=== PATIENT | female | born 1995 | race African-American/Black ===

== ENCOUNTER 2017-03-12 06:10 | Emergency (ER) | payer SELFPAY ==
[2017-03-12] MEDS ORDERED: Ketorolac Tromethamine 60 MG/2 ML VIAL ONE (06:24)
== END 2017-03-12 06:29 | disposition home or self-care (01) ==
LOC: ERS 06:10
DX: M54.5 Low back pain (principal)
CPT/HCPCS: 99283; J1885

== ENCOUNTER 2018-04-25 08:35 | Emergency (ER) | payer SELFPAY ==
[2018-04-25] MEDS ORDERED: Ketorolac Tromethamine 30 MG/ML VIAL ONE (09:14)
[2018-04-25 09:37] LABS: #Basophils 0.1 thou/uL (0.0-0.2); #Eosinphils 0.1 thou/uL (0.0-0.7); #Monocytes 0.8 thou/uL (0.11-0.59); #Neutrophils 5.9 thou/uL (1.40-6.50); %Basophils 0.5 % (0.0-1.0); %Eosinophils 1.1 % (0.0-10.0); %Lymphocytes 37.2 % (28.0-48.0); %Monocytes 7.1 % (0.0-4.0); %Neutrophils 54.2 % (31.0-61.0); Hemoglobin 11.4 g/dL (12.0-16.0); Mean Corpuscular HGB CONC 31.7 g/dL (32.0-36.0); Mean Corpuscular Hemoglobin 24.3 pg (25.0-35.0); Mean Corpuscular Volume 76.6 fL (78.0-98.0); Mean Platelet Volume 9.6 fL (7.4-10.4); Platelet Count 318 thou/uL (130-400); RBC Distribution Width 14.7 % (11.5-14.5); White Blood Cell (WBC) Count 10.9 thou/uL (4.8-10.8)
[2018-04-25 09:59] LABS: ALT (SGPT) 15 U/L (8-55); AST (SGOT) 17 U/L (5-34); Albumin 3.9 g/dL (3.5-5.0); Alkaline Phosphatase 92 U/L (40-150); Anion Gap 17 mmol/L (10-20); BUN (Urea Nitrogen) 11 mg/dL (7.0-18.7); Bilirubin, Total 0.3 mg/dL (0.2-1.2); CK (CPK) 106 U/L (29-168); Calc. Creatinine Clearance 0 mL/min (70-130); Calcium 9.7 mg/dL (7.8-10.44); Carbon Dioxide 20 mmol/L (22-29); Chloride 103 mmol/L (98-107); Estimated GFR-MDRD Greater than 90; Globulin 5.3 g/dL (2.4-3.5); Glucose 98 mg/dL (70-105); Lipase 9 U/L (8-78); Potassium 4.2 mmol/L (3.5-5.1); Protein, Total 9.2 g/dL (6.0-8.3); Sodium 136 mmol/L (136-145)
[2018-04-25 10:03] LABS: CKMB 0.8 ng/mL (0-6.6); Troponin I Less than 0.010 ng/mL (< 0.028)
[2018-04-25 10:13] LABS: Bilirubin Negative (Negative); Blood, Urine Small (Negative); Clarity TURBID (Clear); Glucose, Urine (Dipstick) Negative (Negative); Leukocyte Large (Negative); Nitrite Negative (Negative); Protein, Urine (Dipstick) Trace mg/dL (Neg-Trace); Specific Gravity, Urine 1.027 (1.002-1.036)
[2018-04-25 10:15] LABS: Pregnancy Test - Urine (BHCG) Negative (Negative); Pregu Control Background? CLEAR/WHITE (CLR/WHITE); Pregu Control Bar Appear? YES (CONTROL BAR); Specific Gravity 1.027 (1.002-1.036)
[2018-04-25 10:16] LABS: Bacteria/HPF 1+ HPF (None Seen); Hyaline Casts/LPF 0-3 HYALINE CAST LPF (0-3 Hyaline); Pathc Cast-AUWi Flag 0.43 (0-2.49)
--- NOTE | 2018-04-25 10:18 | RAD ---
UPRIGHT PORTABLE CHEST ONE VIEW: History: 22-year-old female with history of cough, bilateral leg swelling. Joint pain. FINDINGS: Heart size is normal. The lungs are clear. No pneumonia, edema, or pleural effusion or other acute pr ocess. IMPRESSION: No acute intrathoracic disease. POS: [facility]
[2018-04-25 10:22] LABS: Amphetamine Not Detected (NotDetected); Barbiturates Screen Not Detected (NotDetected); Benzodiazepine Screen Not Detected (NotDetected); Cocaine Metabolite Screen Not Detected (NotDetected); Medtox Control Line Valid? VALID (VALID); Medtox Reader # READER 1; Methadone Not Detected (NotDetected); Methamphetamine Not Detected (NotDetected); Opiate Screen Not Detected (NotDetected); Oxycodone Screen Not Detected (NotDetected); Phencyclidine (PCP) Not Detected (NotDetected); THC/Cannabinoid Screen Not Detected (NotDetected); Tricyclic Screen Not Detected (NotDetected)
[2018-04-25] MEDS ORDERED: predniSONE 20 MG TAB ONE (11:07)
== END 2018-04-25 14:28 | disposition home or self-care (01) ==
LOC: ERS 08:35
DX: M13.0 Polyarthritis, unspecified (principal); N39.0 Urinary tract infection, site not specified
CPT/HCPCS: 71045; 80053; 80306; 81003; 81015; 81025; 82550; 82553; 83690; 83880; 84443; 84484; 85025; 85652; 86140; 93005; 94760; 96361; 96374; J1885; J7506

== ENCOUNTER 2018-10-13 19:36 | Emergency (ER) | payer BC, SELFPAY ==
[~2018-10-13 19:36] MED LIST: Iopamidol 370 76% 100 ML VIAL ONE
[2018-10-13] MEDS ORDERED: Metoclopramide HCl 10 MG/2 ML VIAL ONE (20:08)
[2018-10-13] MEDS ORDERED: Ketorolac Tromethamine 30 MG/ML VIAL ONE (20:08)
[2018-10-13 20:12] LABS: #Basophils 0.1 thou/uL (0.0-0.2); #Eosinphils 0.1 thou/uL (0.0-0.7); #Lymphocytes 3.2 thou/uL (1.20-3.40); #Monocytes 0.8 thou/uL (0.11-0.59); #Neutrophils 6.6 thou/uL (1.40-6.50); %Basophils 0.6 % (0.0-1.0); %Lymphocytes 29.7 % (21.0-51.0); %Monocytes 7.2 % (0.0-10.0); %Neutrophils 61.6 % (42.0-75.0); Hemoglobin 10.5 g/dL (12.0-16.0); Mean Corpuscular Hemoglobin 24.1 pg (27.0-31.0); Mean Corpuscular Volume 75.4 fL (78.0-98.0); Mean Platelet Volume 9.6 fL (7.4-10.4); Platelet Count 257 thou/uL (130-400); RBC Distribution Width 15.6 % (11.5-14.5); Red Blood Cell (RBC) Count 4.37 mill/uL (4.20-5.40); White Blood Cell (WBC) Count 10.7 thou/uL (4.8-10.8)
[2018-10-13 20:24] LABS: BHCG - Serum Negative (NEGATIVE); Pregs Control Background? CLEAR/WHITE (CLR/WHITE); Pregs Control Bar Appear? YES (CONTROL BAR)
--- NOTE | 2018-10-13 20:25 | RAD ---
Exam: Chest one view HISTORY:Hypertension. Comparison: 04/25/2018 FINDINGS: Cardiac silhouette: Normal Pulmonary vessels: Normal Costophrenic angles: Clear LUNGS: No masses or consolidation. Pneumothorax: None Osseous abnormalities: None IMPRESSION: No acute cardiopulmonary process.
[2018-10-13 20:27] LABS: Amphetamine Not Detected (NotDetected); Barbiturates Screen Not Detected (NotDetected); Benzodiazepine Screen Not Detected (NotDetected); Cocaine Metabolite Screen Not Detected (NotDetected); Medtox Control Line Valid? VALID (VALID); Medtox Reader # READER 1; Methadone Not Detected (NotDetected); Methamphetamine Not Detected (NotDetected); Opiate Screen Not Detected (NotDetected); Oxycodone Screen Not Detected (NotDetected); Phencyclidine (PCP) Not Detected (NotDetected); THC/Cannabinoid Screen Not Detected (NotDetected); Tricyclic Screen Not Detected (NotDetected)
[2018-10-13 20:32] LABS: ALT (SGPT) 20 U/L (8-55); AST (SGOT) 16 U/L (5-34); Albumin 3.8 g/dL (3.5-5.0); Alkaline Phosphatase 89 U/L (40-150); Anion Gap 13 mmol/L (10-20); BUN (Urea Nitrogen) 10 mg/dL (7.0-18.7); Bilirubin, Total 0.3 mg/dL (0.2-1.2); Calc. Creatinine Clearance 0 mL/min (70-130); Calcium 9.3 mg/dL (7.8-10.44); Carbon Dioxide 25 mmol/L (22-29); Chloride 105 mmol/L (98-107); Estimated GFR-MDRD Greater than 90; Globulin 4.5 g/dL (2.4-3.5); Glucose 95 mg/dL (70-105); Potassium 3.7 mmol/L (3.5-5.1); Protein, Total 8.3 g/dL (6.0-8.3); Sodium 139 mmol/L (136-145)
[2018-10-13 20:33] LABS: Acetaminophen Less than 6.0 mcg/mL (10.0-30.0); Alcohol Less than 10 mg/dL (Less than 10); Salicylate Less than 8.0 mg/dL (15.0-30.0)
--- NOTE | 2018-10-13 21:10 | CT ---
Exam: Head CT without contrast HISTORY: Hypertension. Frontal headache. COMPARISON: none FINDINGS: Hemorrhage: No intraparenchymal hemorrhage or extra-axial hematoma. Brain parenchyma: Cortical aquino-white matter differentiation is preserved. No mass effect or midline shift. Basilar cisterns are patent. There is a subtle hyperdense focus in the suprasellar cistern measuring 1.1 x 1.3 cm. Ventricular system: Ventricles and sulci are patent and symmetric. Calvarium: Intact. Right frontal scalp lipoma measuring 1.5 x 2.3 cm. Sinuses and mastoid air cells: Adequate aeration. IMPRESSION: 1. No acute intracranial process 2. Hyperdense suprasellar mass as described above. Differential considerations include a pituitary ba sed lesion such as a macroadenoma. Other etiologies including a aneurysm cannot be completely excluded. Further evaluation with brain MRI utilizing pituitary protocol versus CT angiogram of the h ead is recommended. Results of study discussed with Dr. Lyles 10/13/2018 at 9:06 PM Code CR
--- NOTE | 2018-10-13 22:31 | CT ---
Exam: Postcontrast head CT HISTORY: Possible sellar mass COMPARISON: 10/13/2018 FINDINGS: No pathologic enhancement the brain parenchyma There is hyperdense mass in the sella and suprasellar region, felt to represent a pituitary based mas s such as a macroadenoma. 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 Refer to separ ate CT angiogram report for further detail with regards to the mass and its dimensions.
--- NOTE | 2018-10-13 22:36 | CT ---
Exam: CT angiogram of the head History abnormal mass in the sella region Comparison none TECHNIQUE: CT angiogram of the head performed in the axial plane. Three-dimensional reformatted image s are submitted FINDINGS: Limited evaluation due to poor timing of contrast bolus. There does not appear to be any significant dilatation of the distal cervical internal carotid arteries Anterior circulation: Symmetric enhancement and luminal diameter the A1 and M1 segments. Proximal A2 segments and proximal MCA branches are symmetric. The degree of hyperdensity is less than the adjacent enhancing vessels. The hyperdense mass noted in the suprasellar region atrophy has continuit y with the sella. A pituitary macroadenoma is favored, measuring 1.8 cm cranial caudal by 1.5 cm mediolateral by 1.5 cm anterior-posterior. There is no evidence of a definite aneurysm the anterior c irculation within the limitations of this current study. Posterior circulation: Limited evaluation of both intracranial vertebral arteries as well as PICA art shazia origins. Both vertebral arteries supply a normal appearing basilar artery. Proximal P1 segments are unremarkable IMPRESSION: 1. Limited evaluation due to technique. There is diminished enhancement of contrast bolus. Additional ly, limited evaluation due to body habitus. No evidence of aneurysm level [place]. 2. Findings suggesting a sellar/suprasellar mass. Pituitary macroadenoma is favored.
== END 2018-10-13 23:02 | disposition home or self-care (01) ==
LOC: ERS 19:36
DX: I10 Essential (primary) hypertension (principal)
CPT/HCPCS: 70450; 70460; 70496; 71045; 80053; 80306; 80307; 83880; 84703; 85025; 93005; 94760; 96365; 96366; 96375; J1885; J2765; Q9967

== ENCOUNTER 2019-01-19 14:26 | Inpatient (IN) | payer BC ==
[2019-01-19 15:21] LABS: #Eosinphils 0.1 thou/uL (0.0-0.7); #Lymphocytes 3.5 thou/uL (1.20-3.40); #Monocytes 0.7 thou/uL (0.11-0.59); #Neutrophils 6.3 thou/uL (1.40-6.50); %Basophils 0.3 % (0.0-1.0); %Eosinophils 1.1 % (0.0-10.0); %Lymphocytes 32.8 % (21.0-51.0); %Monocytes 6.6 % (0.0-10.0); %Neutrophils 59.2 % (42.0-75.0); Hemoglobin 11.5 g/dL (12.0-16.0); Mean Corpuscular HGB CONC 31.1 g/dL (32.0-36.0); Mean Corpuscular Volume 77.1 fL (78.0-98.0); Platelet Count 335 thou/uL (130-400); RBC Distribution Width 15.8 % (11.5-14.5); Red Blood Cell (RBC) Count 4.79 mill/uL (4.20-5.40); White Blood Cell (WBC) Count 10.7 thou/uL (4.8-10.8)
[2019-01-19 15:24] LABS: BHCG - Serum Negative (NEGATIVE); Pregs Control Background? CLEAR/WHITE (CLR/WHITE); Pregs Control Bar Appear? YES (CONTROL BAR)
[2019-01-19] MEDS ORDERED: Proparacaine 0.5% Opth 15 ML BOT ONE (15:27)
[2019-01-19 15:41] LABS: ALT (SGPT) 23 U/L (8-55); AST (SGOT) 16 U/L (5-34); Albumin 4.1 g/dL (3.5-5.0); Alkaline Phosphatase 97 U/L (40-150); Anion Gap 14 mmol/L (10-20); BUN (Urea Nitrogen) 11 mg/dL (7.0-18.7); Bilirubin, Total 0.3 mg/dL (0.2-1.2); CK (CPK) 97 U/L (29-168); Calc. Creatinine Clearance 0 mL/min (70-130); Carbon Dioxide 25 mmol/L (22-29); Chloride 102 mmol/L (98-107); Estimated GFR-MDRD Greater than 90; Globulin 4.7 g/dL (2.4-3.5); Glucose 118 mg/dL (70-105); Potassium 3.5 mmol/L (3.5-5.1); Protein, Total 8.8 g/dL (6.0-8.3); Sodium 137 mmol/L (136-145)
--- NOTE | 2019-01-19 15:47 | RAD ---
PORTABLE CHEST ONE VIEW: 01/19/2019 3:25 p.m. HISTORY: Dizziness. Vision changes. COMPARISON: 10/13/2018 FINDINGS: The heart size is borderline. The lungs are expanded without focal areas of consolidation, pneumotho races, donald pulmonary edema, or pleural effusions. IMPRESSION: No acute process. POS: [facility]
[2019-01-19 15:50] LABS: Thyroid Stimulating Hormone 2.4153 uIU/mL (0.35-4.94)
[2019-01-19 16:42] LABS: Bilirubin Negative (Negative); Blood, Urine 1+ (Negative); Clarity Turbid (Clear); Glucose, Urine (Dipstick) Normal (Negative); Leukocyte Negative Leu/uL (Negative); Nitrite Negative (Negative); Protein, Urine (Dipstick) Negative (Neg-Trace); Urobilinogen Normal mg/dL (Less than 2); WBC/HPF 0-3 HPF (0-3)
[2019-01-19 16:47] LABS: Bacteria/HPF 1+ HPF (None Seen)
--- NOTE | 2019-01-19 17:59 | CT ---
CT BRAIN WITHOUT CONTRAST: Date: 01/19/19 HISTORY: Dizziness. Left eye vision changes. FINDINGS: Comparison made with exam of 10/13/18. No evidence of acute infarct, hemorrhage, midline shift, or abnormal extra-axial fluid collections ar e seen. The ventricular size is normal and the basilar cisterns are patent. Sellar and suprasellar ma ss is likely due to macroadenoma and was also seen on the previous study. The bony calvarium is intac t. The visualized paranasal sinuses and mastoid air cells are well aerated. IMPRESSION: Stable exam. No CT evidence of acute intracranial process. POS: [facility]
[2019-01-19] MEDS ORDERED: Labetalol HCl 100 MG/20 ML VIAL ONE (18:51)
[2019-01-19] MEDS ORDERED: Acetaminophen 500 MG TAB ONE (19:53)
[2019-01-19] MEDS ORDERED: Ondansetron ODT 4 MG TAB SL PRN (21:10)
[2019-01-19] MEDS ORDERED: Ondansetron PF 4 MG/2 ML Vial IVP PRN (21:10)
[2019-01-19] MEDS ORDERED: Sodium Chloride 0.9% 1,000 ML IV SCH (21:15)
[2019-01-19 21:57] VITALS: BMI 62.4
[2019-01-20] MEDS ORDERED: cloNIDine 0.1 MG TAB PO PRN (02:02)
--- NOTE | 2019-01-20 03:17 | HP ---
PRIMARY CARE DOCTOR: The patient goes to [facility]. CODE STATUS: Full code. TIME OF EVALUATION: 11:00 pm. CHIEF COMPLAINT: Evaluation of dizziness and left eye vision changes for the past 3 weeks. HISTORY OF PRESENT ILLNESS: A 23-year-old female patient, morbidly obese with history of hypertension. She reported she had not been on medication because medication had been stopped. The patient came to the hospital after having mild to moderate left eye vision change since past 3 weeks that has been gradually worsening with no clear triggers, no alleviating factors. The patient has no other significant neurological findings or weakness. No clear triggers. No alleviating factors. REVIEW OF SYSTEMS: All systems reviewed were negative except for the findings mentioned above. The patient is morbidly obese. PAST MEDICAL HISTORY: History of hypertension, morbidly obese. PAST SURGICAL HISTORY: No surgical history. PSYCH HISTORY: No previous history. SOCIAL HISTORY: No alcohol. No drugs. No smoking history. Lives at home alone. FAMILY HISTORY: Reviewed, noncontributory for current presentation. PHYSICAL EXAMINATION: VITAL SIGNS: On presentation, blood pressure 181/106, heart rate 134, respiratory rate was 18, temperature 98.5, oxygen saturation 98% on room air. GENERAL: The patient is alert, oriented, in no acute distress. HEENT: Eyes, normal conjunctivae. Moist oral mucosa. Anicteric. No JVD. RESPIRATORY: Bilateral air entry. No rales. No wheezes. Symmetric expansion. CARDIAC: Normal rate, regular rhythm. No murmurs. No gallop. No edema. ABDOMEN: Soft. Normal bowel sounds. MUSCULOSKELETAL: Baseline range of motion and strength. SKIN: Warm, intact. No pallor. No rash. No redness. Capillary refill seems to intact. NEUROLOGICAL: No evidence of any new focal weakness. Cranial nerves seem to be intact. PSYCH: The patient is in good mood. No anxiety. Optimal judgment. LABORATORY DATA: EKG was reviewed. The patient has sinus tachycardia at the rate of 132. Head CT was done. CT showed suprasellar mass, likely pituitary macroadenoma, unchanged from previous exam. CBC was reviewed, white count 10.7, hemoglobin 11.5, MCV 77.1, platelet count 335. Coagulation, D-dimer 0.42. Chemistry; sodium 137, potassium 3.5, chloride 102, carbon dioxide 25, anion gap 14, BUN 11, creatinine 0.76, GFR greater than 90, glucose 118, calcium 10.0, total bilirubin 0.3. LFTs were negative. Albumin 4.1, globulin 4.7, albumin to globulin ratio 0.9. TSH 2.4. test was negative. Urine was done and it was negative. ASSESSMENT AND PLAN: The patient will be placed in the hospital with following medical problems: 1. Suprasellar mass as seen on CT scan from October in addition from today. The patient has had change in vision in the left eye for the past 3 weeks. This could be related to the mass and we will do an MRI to further visualize it. We will do chemical workup for this entity and we will manage depending on results, Neurosurgery will need to be involved given this presentation. 2. Morbidly obese. The patient was advised to lose weight. 3. Uncontrolled hypertension. The patient presented with systolic blood pressure in the 180s. She has reported in the past that her primary care doctor has stopped her medications because she was having no problem with blood pressure. We will start her on clonidine p.r.n. and we will adjust treatment as needed. 4. Deep venous thrombosis prophylaxis. Job ID: [id number]
[2019-01-20 03:43] LABS: Thyroid Stimulating Hormone 1.6239 uIU/mL (0.35-4.94)
[2019-01-20 05:44] LABS: Free T4 (Free Thyroxine) 0.99 ng/dL (0.70-1.48)
[2019-01-20 13:25] LABS: Color Of CSF Supernatant COLORLESS (Colorless); Tube # 1; Unspun CSF Color COLORLESS (Colorless)
[2019-01-20 13:42] LABS: CSF, Glucose 66 mg/dl (40-70); CSF, Protein 45 mg/dL (15-40)
--- NOTE | 2019-01-20 13:53 | RAD ---
Exam: LUMBAR PUNCTURE WITH FLUOROSCOPIC GUIDANCE: HISTORY: Headache. Evaluate for opening pressure. COMPARISON: None. Exposure: 1.9 minutes. 2415.9 microgray/M2. FINDINGS: Initial two-view collective bargaining specialist radiograph of lumbar spine demonstrates 5 lumbar type vertebral bodies. Verte bral body height is maintained. No fracture The L3-L4 level was deemed appropriate. Skin was prepped and draped in a sterile fashion. 1% lidocain e, buffered with sodium bicarbonate was used for local anesthesia. Under fluoroscopic guidance, a 22-gauge spinal needle was advanced into the CSF space. Opening pressure was 24.5 cm of water. Appro ximately 3 mL of clear CSF was collected IMPRESSION: Successful lumbar puncture. Opening pressure was 24.5 cm of water. Transcribed Date/Time: 01/20/2019 2:37 PM
[2019-01-20 14:24] LABS: CSF Source CSF; Tube # 2
[2019-01-20 14:25] LABS: Clarity Clear (Clear); RBC Count - Manual 320 /cumm (None Seen); WBC/NonHematics Count - Manual 5 /cumm (0-5)
--- NOTE | 2019-01-21 00:41 | CON ---
DATE OF CONSULTATION: 01/20/2019 CONSULTING PHYSICIAN: Hospitalist Services. IMPRESSION: Pituitary adenoma, likely prolactin producing based on her symptoms. PLAN: 1. Neurosurgical consultation. 2. Stat prolactin level. 3. Consider dopamine agonists for shrinkage of the tumor, if she is positive. HISTORY OF PRESENT ILLNESS: Ms. Bobby is a 23-year-old black female with history of morbid obesity. She reports to having some headaches and noticing some blurred vision in her left eye. She came into the emergency room for evaluation. Her CT revealed a suprasellar mass. An attempt was made to get an MRI of the brain, but she would not fit in the machine. She also reported that she has developed quite a bit of facial hair growth over the last few months. She does not report any orbital pain. There is no nausea or vomiting. She has no other focal neurologic complaints. PAST MEDICAL HISTORY: Otherwise negative other than an obesity. ALLERGIES: NONE REPORTED. SOCIAL HISTORY: Unremarkable. FAMILY HISTORY: Unremarkable. REVIEW OF SYSTEMS: Ten system review of system is otherwise negative. PHYSICAL EXAMINATION: GENERAL: She is a morbidly obese young woman, sitting at the bedside. No distress. VITAL SIGNS: Stable. She is afebrile. HEENT: Pupils are equal and reactive. Conjunctivae clear. There is no proptosis present. No ptosis is present. NECK: Supple. EXTREMITIES: No cyanosis or edema. NEUROLOGIC: She is alert and cooperative. Her speech is fluent and clear. Cranial nerves were intact other than a slightly reduced left peripheral field cut. Funduscopic exam showed sharp disk margins bilaterally. She had no focal deficits otherwise. SUMMARY: A 23-year-old with a suprasellar mass and a partial visual field deficit on the left and some discomfort as well as possibly galactorrhea. We will get a stat prolactin level and we are awaiting neurosurgery's input. Job ID: [id number]
--- NOTE | 2019-01-21 10:00 | CON ---
DATE OF CONSULTATION: Ms. Bobby is a very pleasant 23-year-old woman who actually we were trying to get in for clinical evaluation of an identified suprasellar mass back in October, who unfortunately was unable to do the MRI scan secondary to funding back in the early part of November. She presents now with roughly a week or two of visual blurriness that is not noticeable to her and she has had recent onset of hirsutism. She is morbidly obese. Unfortunately, she still do not have an MRI. 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 I discussed with her that the very likely route is surgical resection, but first we will need to start her on medications to depress the prolactin secretion and likely help reduce some of this tumor size. I will defer to either Endocrinology or Neurology for proper dosing and prescription of said medications. We will certainly need an MRI with and without contrast to better plan for surgery. I discussed with her likely multi-approach procedure for resection sometime in the next 6 months, and she will need close clinical followup after discharge from our standpoint. She is safe for discharge from the hospital at any point, and we will arrange for outpatient followup. Job ID: [id number]
[2019-01-21] MEDS ORDERED: Pramipexole Di-HCl 0.25 MG TAB PO SCH (10:15)
--- NOTE | 2019-01-21 12:32 | PDOC.HOSPP ---
- Subjective Subjective: Seen and examined. Patient feeling well. Denies pain. Breathing well. Blurry vision not worse and she does not notice it most of the time. Found to have very elevated Prolactin. - Objective Vital Signs & Weight: Vital Signs (12 hours) Temp Pulse Resp BP Pulse Ox 01/21/19 11:00 98.2 F 111 H 16 129/74 98 01/21/19 07:00 97.9 F 90 18 135/87 97 01/21/19 03:00 98.2 F 92 18 143/84 H 98 Weight Weight 386 lb 8.64 oz I&O: 01/20/19 01/21/19 01/22/19 06:59 06:59 06:59 Intake Total 2400 480 Output Total 500 Balance 2400 -20 Result Diagrams: 01/19/19 15:04 01/19/19 15:04 - Exam NAD, awake alert Eye: PERRL, anicteric sclera Eye - other findings: Blurry vision, though able to function ENT: moist mucosa Neck: supple, symmetric, no JVD Neck - other findings: Hirsutism present Heart: RRR, no murmur, no gallops, no rubs Respiratory: CTAB, no wheezes, no rales, no ronchi Gastrointestinal: soft, non-tender, non-distended, no guarding, no rigidity Extremities: no edema Neurological: CN's grossly intact, normal sensation to touch, no weakness, no focal deficits, vision deficit (Very mild blurring vision) Musculoskeletal: normal strength Psychiatric: normal affect, A&O x 3 Hosp A/P (1) Prolactinoma Code(s): D35.2 - BENIGN NEOPLASM OF PITUITARY GLAND Status: Acute (2) Blurry vision Code(s): H53.8 - OTHER VISUAL DISTURBANCES Status: Acute (3) Obesity Code(s): E66.9 - OBESITY, UNSPECIFIED Status: Chronic (4) HTN (hypertension) Code(s): I10 - ESSENTIAL (PRIMARY) HYPERTENSION Status: Acute (5) Hirsutism Code(s): L68.0 - HIRSUTISM Status: Acute - Plan Plan: Neurology and Neurosurgery consultation, recommendations appreciated MRI brain with and with out contrast - will need bariatric capable Case management consult for bariatric capable MRI vs Open MRI Start Bromocriptine 1.25mg QPM with dinner, will need a slow titration up over the next 2 weeks to 2.5mg BID Will need serial Prolactin levels in the outpatient setting until Prolactin normalizes FSH and LH are suppressed, other hormones pending Will need improved follow up with Endocrinology, Neurology, and Neurosurgery in the outpatient setting BP elevated, though seems to be situational. A blood pressure log should be kept over the next few weeks and if persistently high may start hypertensive medications DVT PPX
[2019-01-21] MEDS: Acetaminophen 325 MG TAB PO PRN (16:40)
[2019-01-21] MEDS: Bromocriptine 2.5 MG TAB PO SCH (16:41)
[2019-01-21] MEDS: Pramipexole Di-HCl 0.25 MG TAB PO SCH (21:01)
[2019-01-22] MEDS ORDERED: Bromocriptine 2.5 MG TAB PO SCH (08:00)
[2019-01-22] MEDS: Pramipexole Di-HCl 0.25 MG TAB PO SCH (08:33)
[2019-01-22] MEDS ORDERED: Lisinopril 5 MG TAB PO SCH (09:00)
[2019-01-22] MEDS: Acetaminophen 325 MG TAB PO PRN (15:38)
[2019-01-22 15:46] VITALS: BP 137/94; TEMP 98.2
[2019-01-22] MEDS: Bromocriptine 2.5 MG TAB PO SCH (17:58)
--- NOTE | 2019-01-23 01:17 | DIS ---
DATE OF ADMISSION: 01/19/2019 DATE OF DISCHARGE: 01/22/2019 REASON FOR HOSPITALIZATION: Blurry vision, history of brain tumor. SIGNIFICANT FINDINGS: The patient was found to have severely elevated prolactin level concerning for prolactinoma. PROCEDURES PERFORMED AND TREATMENTS RENDERED: The patient was sent out to [facility] for open MRI, official report is pending. The patient is started on bromocriptine to reduce prolactin level acutely in the hospital, will need up titration over the next coming weeks. CONDITION ON DISCHARGE: Stable. SPECIFIC INSTRUCTIONS FOR THE PATIENT/FAMILY: 1. Take all medications as directed. 2. Follow up with primary care physician in the next 5 to 7 days. 3. Follow up with Neurosurgery in the next 1 to 2 weeks. 4. Follow up with Neurology in the next 1 to 2 weeks. 5. Follow up with Endocrinology in the next 1 to 2 weeks. HISTORY OF PRESENT ILLNESS: Ms. Bobby is a very pleasant 23-year-old female who was diagnosed with brain tumor in the spring of this year. The patient was sent home and recommended followup in the outpatient setting. Unfortunately, the patient did not follow up and she did not have any further testing or treatment. The patient was concerned because she was told she would have to pay 7000 dollars for an MRI of the brain, so she did not follow up with any doctors or take any medicines. The patient is presenting to [facility] on 01/19/2019, with worsening blurry vision and double vision. The patient had CT scan of the brain, please see full report for details, no acute intracranial abnormality was identified. The patient does have sellar and suprasellar mass that is likely due to macroadenoma as was previously demonstrated on prior CT scan of the brain. The patient was seen by Neurology and Neurosurgery, please see full consultation and progress notes for details. Neurology and Neurosurgery recommending starting dopamine agonist medications to shrink likely prolactinoma. The patient had blood levels tested with prolactin level being 1280. The patient was started on bromocriptine in the hospital and she did tolerate this medication without acute vomiting. The patient did have some nausea associated; however, she was able to keep the medication down. The patient is recommended safe for discharge by all specialists with close followup in the outpatient setting. The patient is recommended to have slow titration up of bromocriptine. The patient is to have slow titration up of bromocriptine over the upcoming weeks as coordinated by her primary care physician and sonar subsystem equipment operator. The patient was strictly recommended that if signs or symptoms return, worsen, or any other new symptoms occur, she is to return to acute care hospital immediately for re-evaluation. Neurosurgery recommending that the patient be started on prolactin-suppressing medication, she may require surgical correction in the next 6 months pending clinical improvement. Greater than 40 minutes spent coordinating care and discharge process on this patient. Job ID: [id number]
== END 2019-01-22 18:24 | disposition home or self-care (01) | DRG 644 ==
LOC: ERS 14:26 → 2SE 18:44
PROVIDERS: ADMIT Internal Medicine; ATTEND Internal Medicine
PROC: 009U3ZX Drainage of Spinal Canal, Percutaneous Approach, Diagnostic (ICD-10-PCS; principal; 2019-01-20)
PROC: B01B1ZZ Fluoroscopy of Spinal Cord using Low Osmolar Contrast (ICD-10-PCS; 2019-01-20)
DX: D35.2 Benign neoplasm of pituitary gland (principal); Z68.44 Body mass index [BMI] 60.0-69.9, adult; E66.01 Morbid (severe) obesity due to excess calories; I10 Essential (primary) hypertension; H53.8 Other visual disturbances; L68.0 Hirsutism
CPT/HCPCS: 36415; 62270; 70450; 71045; 80053; 81003; 81015; 82024; 82530; 82550; 82945; 83001; 83002; 83003; 83520; 83880; 84146; 84157; 84439; 84443; 84481; 84484; 84703; 85025; 85379; 89051; 93005; 96361; 96374; Q0162

== ENCOUNTER 2019-03-29 06:25 | Emergency (ER) | payer BC, SELFPAY ==
[2019-03-29] MEDS ORDERED: Sulfameth/Trimethoprim DS 800-160mg TAB ONE (07:21)
[2019-03-29] MEDS ORDERED: HYDROcodone/Acetaminophen 10/325 mg Tablet ONE (07:21)
[2019-03-29] MEDS ORDERED: Lidocaine 1% w/Epinephrine 1:100K 20 ML VIAL ONE (07:22)
[2019-03-29] MEDS ORDERED: Ketorolac Tromethamine 30 MG/ML VIAL ONE (07:37)
== END 2019-03-29 08:07 | disposition home or self-care (01) ==
LOC: ERS 06:25
DX: L02.212 Cutaneous abscess of back [any part, except buttock and flank] (principal); I10 Essential (primary) hypertension; Z79.899 Other long term (current) drug therapy
CPT/HCPCS: 10060; 87070; 87077; 87186; 87205; J1885

== ENCOUNTER 2019-03-30 16:32 | Emergency (ER) | payer SELFPAY | END 2019-03-30 17:20 | disposition home or self-care (01) | LOC: ERS 16:32 | DX: Z48.817 Encounter for surgical aftercare following surgery on the skin and subcutaneous tissue (principal); I10 Essential (primary) hypertension; Z79.899 Other long term (current) drug therapy | CPT/HCPCS: 99282 ==

== ENCOUNTER 2019-06-21 12:43 | Emergency (ER) | payer BC | END 2019-06-21 13:36 | disposition home or self-care (01) | LOC: ERS 12:43 | DX: T81.31XA Disruption of external operation (surgical) wound, not elsewhere classified, initial encounter (principal); I10 Essential (primary) hypertension | CPT/HCPCS: 10180; 87070; 87077; 87186; 87205 ==

== ENCOUNTER 2021-03-10 17:31 | Inpatient (IN) | payer BC, SELFPAY ==
[2021-03-10] MEDS ORDERED: Ketorolac Tromethamine 30 MG/ML VIAL ONE (19:46)
[2021-03-10] MEDS ORDERED: Ondansetron PF 4 MG/2 ML Vial ONE (19:46)
[2021-03-10 20:22] LABS: #Lymphocytes 2.6 thou/uL (1.20-3.40); #Monocytes 0.7 thou/uL (0.11-0.59); #Neutrophils 7.2 thou/uL (1.40-6.50); %Basophils 0.1 % (0.0-1.0); %Eosinophils 0.4 % (0.0-10.0); %Lymphocytes 24.9 % (21.0-51.0); %Monocytes 6.3 % (0.0-10.0); %Neutrophils 68.4 % (42.0-75.0); Hemoglobin 11.4 g/dL (12.0-16.0); Mean Corpuscular HGB CONC 31.2 g/dL (32.0-36.0); Mean Corpuscular Hemoglobin 24.3 pg (27.0-31.0); Mean Corpuscular Volume 78.1 fL (78.0-98.0); Mean Platelet Volume 10.2 fL (7.4-10.4); Platelet Count 274 thou/uL (130-400); RBC Distribution Width 15.6 % (11.5-14.5); Red Blood Cell (RBC) Count 4.69 mill/uL (4.20-5.40); White Blood Cell (WBC) Count 10.6 thou/uL (4.8-10.8)
[2021-03-10 20:43] LABS: ALT (SGPT) 203 U/L (8-55); AST (SGOT) 132 U/L (5-34); Albumin 3.9 g/dL (3.5-5.0); Alkaline Phosphatase 187 U/L (40-110); Anion Gap 13 mmol/L (10-20); BUN (Urea Nitrogen) 8 mg/dL (7.0-18.7); Bilirubin, Total 1.1 mg/dL (0.2-1.2); Calc. Creatinine Clearance 0 mL/min (70-130); Calcium 9.5 mg/dL (7.8-10.44); Carbon Dioxide 26 mmol/L (22-29); Chloride 104 mmol/L (98-107); Globulin 4.4 g/dL (2.4-3.5); Glucose 97 mg/dL (70-105); Potassium 4.1 mmol/L (3.5-5.1); Protein, Total 8.3 g/dL (6.0-8.3); Sodium 139 mmol/L (136-145)
[2021-03-10 20:56] LABS: Lipase 1240 U/L (8-78)
[2021-03-11] MEDS ORDERED: Morphine 4 MG/ML VIAL SLOW IVP PRN ×2 (00:12→08:35)
[2021-03-11] MEDS ORDERED: Ketorolac Tromethamine 30 MG/ML VIAL IVP PRN (00:13)
[2021-03-11] MEDS ORDERED: Acetaminophen 325 MG TAB PO PRN (00:15)
[2021-03-11] MEDS ORDERED: Ondansetron PF 4 MG/2 ML Vial IVP PRN (00:15)
[2021-03-11] MEDS ORDERED: Ondansetron ODT 4 MG TAB SL PRN (00:15)
[2021-03-11 00:16] VITALS: BMI 57.9
[2021-03-11] MEDS: Sodium Chloride 0.9% 1,000 ML IV SCH ×2 (00:29→08:28)
[2021-03-11 06:18] LABS: SARS-CoV-2 NAA Rapid Test Not Detected (NotDetected)
[2021-03-11] MEDS ORDERED: FLU VACC QS2021-22(6MOS UP)/PF 60 MCG/0.5 ML SYRINGE IM ONE (09:00)
[2021-03-11 09:38] LABS: #Eosinphils 0.1 thou/uL (0.0-0.7); #Lymphocytes 2.2 thou/uL (1.20-3.40); #Monocytes 0.5 thou/uL (0.11-0.59); #Neutrophils 6.4 thou/uL (1.40-6.50); %Basophils 0.3 % (0.0-1.0); %Eosinophils 0.7 % (0.0-10.0); %Lymphocytes 23.7 % (21.0-51.0); %Monocytes 5.2 % (0.0-10.0); %Neutrophils 70.1 % (42.0-75.0); Hemoglobin 10.3 g/dL (12.0-16.0); Mean Corpuscular HGB CONC 30.6 g/dL (32.0-36.0); Mean Corpuscular Hemoglobin 23.8 pg (27.0-31.0); Mean Platelet Volume 10.2 fL (7.4-10.4); Platelet Count 245 thou/uL (130-400); RBC Distribution Width 15.6 % (11.5-14.5); Red Blood Cell (RBC) Count 4.31 mill/uL (4.20-5.40); White Blood Cell (WBC) Count 9.2 thou/uL (4.8-10.8)
[2021-03-11 09:54] LABS: ALT (SGPT) 137 U/L (8-55); AST (SGOT) 61 U/L (5-34); Albumin 3.4 g/dL (3.5-5.0); Alkaline Phosphatase 147 U/L (40-110); Anion Gap 11 mmol/L (10-20); BUN (Urea Nitrogen) 9 mg/dL (7.0-18.7); Bilirubin, Total 0.9 mg/dL (0.2-1.2); Calc. Creatinine Clearance 346 mL/min (70-130); Calcium 8.6 mg/dL (7.8-10.44); Carbon Dioxide 23 mmol/L (22-29); Chloride 109 mmol/L (98-107); Globulin 3.6 g/dL (2.4-3.5); Glucose 79 mg/dL (70-105); Lipase 282 U/L (8-78); Potassium 3.5 mmol/L (3.5-5.1); Sodium 139 mmol/L (136-145)
[2021-03-11 10:37] LABS: MDiff Complete? YES; Microcytosis SLIGHT = 6-15 cells (100X) (0-5/hpf); Platelet Morphology Comment Appears Adequate; Polychromasia SLIGHT = 2-3 cells (100X) (0-2/hpf)
[2021-03-11] MEDS ORDERED: Bupivacaine 0.25% HCL 30 ML VIAL ONE (15:21)
[2021-03-11] MEDS ORDERED: Lidocaine 1% w/Epinephrine 1:100K 20 ML VIAL ONE (15:21)
[2021-03-11] MEDS ORDERED: Iothalamate Meglumine 60% 50 ML VIAL FS ONE (15:21)
[2021-03-11] MEDS ORDERED: Midazolam HCl 2 mg/2 ml Vial ONE (15:23)
[2021-03-11] MEDS ORDERED: Fentanyl 250 MCG/5 ML VIAL ONE (15:23)
[2021-03-11] MEDS ORDERED: Lidocaine 2% Jelly 5 ML TUBE ONE (15:24)
[2021-03-11] MEDS ORDERED: SUGAMMADEX SODIUM 200 MG/2 ML VIAL ONE (15:24)
[2021-03-11] MEDS ORDERED: Ondansetron PF 4 MG/2 ML Vial ONE (16:55)
[2021-03-11] MEDS ORDERED: ePHEDrine 50 MG/ML VIAL ONE (16:55)
[2021-03-11] MEDS ORDERED: Succinylcholine 200 MG/10 ml SYRINGE FS ONE (16:55)
[2021-03-11] MEDS ORDERED: PROPOFOL 200 MG/20 ML VIAL ONE (16:55)
[2021-03-11] MEDS ORDERED: Dexamethasone 20 MG/5 ML VIAL ONE (16:55)
[2021-03-11] MEDS ORDERED: Rocuronium Bromide 10 MG/ML (10ML VIAL) ONE (16:55)
[2021-03-11] MEDS ORDERED: Lidocaine 1% PF 5 ML VIAL ONE (16:55)
[2021-03-11] MEDS ORDERED: traMADol HCl 50 MG TAB PO PRN (17:01)
[2021-03-11] MEDS ORDERED: Ibuprofen 600 MG TAB PO PRN (17:01)
[2021-03-11] MEDS ORDERED: Acetaminophen 500 MG TAB PO PRN (17:06)
[2021-03-11] MEDS ORDERED: Ondansetron HCl/PF 4 MG/2 ML Vial IVP PRN (17:57)
[2021-03-11] MEDS ORDERED: Promethazine HCl 25 MG/ML VIAL IVPB PRN (17:57)
[2021-03-11] MEDS ORDERED: Promethazine HCl 25 MG/ML VIAL IM PRN (17:57)
[2021-03-11] MEDS ORDERED: Fentanyl 100 MCG/2 ML VIAL ONE (17:58)
[2021-03-11] MEDS: Ketorolac Tromethamine 30 MG/ML VIAL IVP PRN (22:12)
[2021-03-12] MEDS: Ketorolac Tromethamine 30 MG/ML VIAL IVP PRN (05:07)
[2021-03-12 08:12] VITALS: BP 123/75; TEMP 98.2
== END 2021-03-12 10:15 | disposition home or self-care (01) | DRG 417 ==
LOC: ERS 17:31 → SURG A 22:17
PROVIDERS: ADMIT Specialist; ATTEND Specialist
PROC: 0FT44ZZ Resection of Gallbladder, Percutaneous Endoscopic Approach (ICD-10-PCS; principal; 2021-03-11)
PROC: BF131ZZ Fluoroscopy of Gallbladder and Bile Ducts using Low Osmolar Contrast (ICD-10-PCS; 2021-03-11)
DX: K80.12 Calculus of gallbladder with acute and chronic cholecystitis without obstruction (principal); K85.10 Biliary acute pancreatitis without necrosis or infection; Z68.43 Body mass index [BMI] 50.0-59.9, adult; E66.01 Morbid (severe) obesity due to excess calories; I10 Essential (primary) hypertension; D49.7 Neoplasm of unspecified behavior of endocrine glands and other parts of nervous system; Z91.14 Patient's other noncompliance with medication regimen; Z79.899 Other long term (current) drug therapy
CPT/HCPCS: 36415; 47532; 76705; 80053; 83690; 85025; 96372; 96374; 96375; J0500; J1610; J1885; J1956; J2250; J2270; J2405; J3010; J7050; Q9961; S0020; U0002

== ENCOUNTER 2022-05-16 08:02 | Outpatient (CLI) | payer BC ==
[2022-05-16 08:53] LABS: #Eosinphils 0.1 10x3/uL (0.0-0.5); #Monocytes 0.5 10x3/uL (0.0-1.1); #Neutrophils 5.5 10x3/uL (1.5-8.4); %Basophils 0.3 % (0.0-2.0); %Eosinophils 1.1 % (0.0-6.0); %Lymphocytes 31.9 % (18.0-47.0); %Monocytes 5.4 % (0.0-10.0); Hemoglobin 10.9 g/dL (12.0-15.5); Mean Corpuscular HGB CONC 31.4 g/dL (32.0-36.0); Mean Corpuscular Hemoglobin 25.1 pg (27.0-33.0); Mean Corpuscular Volume 79.8 fl (81.6-98.3); Mean Platelet Volume 11.7 fl (7.4-10.4); Platelet Count 281 10x3/uL (150-450); RBC Distribution Width 15.5 % (11.5-14.5); Red Blood Cell (RBC) Count 4.35 10x6/uL (3.90-5.03)
[2022-05-16 08:59] LABS: BHCG - Serum Negative (NEGATIVE); Pregs Control Background? CLEAR/WHITE (CLR/WHITE); Pregs Control Bar Appear? YES (CONTROL BAR)
[2022-05-16 09:17] LABS: ALT (SGPT) 18 U/L (8-55); AST (SGOT) 12 U/L (5-34); Albumin 3.8 g/dL (3.5-5.0); Alkaline Phosphatase 83 U/L (40-110); Anion Gap 13 mmol/L (10-20); BUN (Urea Nitrogen) 13 mg/dL (7.0-18.7); Bilirubin, Total 0.4 mg/dL (0.2-1.2); Calc. Creatinine Clearance 0 mL/min (70-130); Carbon Dioxide 25 mmol/L (22-29); Chloride 106 mmol/L (98-107); Estimated GFR 122; Globulin 3.7 g/dL (2.4-3.5); Glucose 119 mg/dL (70-105); Potassium 3.9 mmol/L (3.5-5.1); Protein, Total 7.5 g/dL (6.0-8.3); Sodium 140 mmol/L (136-145)
[2022-05-16 14:34] LABS: Hemoglobin A1c 5.8 % (4.0-6.0)
== END 2022-05-16 08:03 | disposition home or self-care (01) ==
LOC: LABBT 08:02
PROVIDERS: ATTEND Surgery
DX: Z01.818 Encounter for other preprocedural examination (principal); E66.01 Morbid (severe) obesity due to excess calories
CPT/HCPCS: 71046; 80053; 83036; 84703; 85025; 93005; 93010

== ENCOUNTER 2022-05-16 16:30 | Inpatient (IN) | payer BC ==
[2022-05-25 09:22] VITALS: BMI 61.6
[2022-05-30] MEDS ORDERED: Bupivacaine/Epinephrine 0.25% 30 ML VIAL ONE (06:41)
[2022-05-30] MEDS ORDERED: CEFAZOLIN 2 GM VIAL ONE (06:56)
[2022-05-30] MEDS ORDERED: Heparin 5,000 UNITS/ML VIAL ONE (06:56)
[2022-05-30] MEDS ORDERED: Sodium Chloride 0.9% 100 ML ONE (06:56)
[2022-05-30 07:06] LABS: SARS-CoV-2 NAA Rapid Test Not Detected (NotDetected)
[2022-05-30] MEDS ORDERED: Famotidine/PF 20 mg/2ml Vial ONE (07:09)
[2022-05-30] MEDS ORDERED: Fentanyl 250 MCG/5 ML VIAL ONE (07:09)
[2022-05-30] MEDS ORDERED: SUGAMMADEX SODIUM 200 MG/2 ML VIAL ONE (07:09)
[2022-05-30] MEDS ORDERED: Promethazine HCl 25 MG/ML VIAL ONE (07:09)
[2022-05-30] MEDS ORDERED: Midazolam HCl 2 mg/2 ml Vial ONE (07:27)
[2022-05-30] MEDS ORDERED: Ondansetron PF 4 MG/2 ML Vial ONE (07:42)
[2022-05-30] MEDS ORDERED: Dexamethasone 20 MG/5 ML VIAL ONE (07:42)
[2022-05-30] MEDS ORDERED: Rocuronium Bromide 10 MG/ML (10ML VIAL) ONE (07:42)
[2022-05-30] MEDS ORDERED: NEOSTIGMINE 3 MG/3 ML SYR 3 MG/3 ML SYRINGE ONE (07:42)
[2022-05-30] MEDS ORDERED: Lidocaine 1% PF 5 ML VIAL ONE (07:42)
[2022-05-30] MEDS ORDERED: PROPOFOL 200 MG/20 ML VIAL ONE (07:42)
[2022-05-30] MEDS ORDERED: Ketorolac Tromethamine 30 MG/ML VIAL ONE (07:42)
[2022-05-30] MEDS ORDERED: Glycopyrrolate 0.2 MG/ML 5 ML SYRINGE ONE (07:42)
[2022-05-30] MEDS ORDERED: HYDROmorphone 2 MG/ML VIAL SLOW IVP PRN (08:36)
[2022-05-30] MEDS ORDERED: Promethazine HCl 25 MG/ML VIAL IM PRN ×3 (08:36→10:15)
[2022-05-30] MEDS ORDERED: Ondansetron HCl/PF 4 MG/2 ML Vial IVP PRN (08:36)
[2022-05-30] MEDS ORDERED: PACU-Morphine 4MG/ML VIAL SLOW IVP PRN (08:36)
[2022-05-30] MEDS ORDERED: Promethazine HCl 25 MG/ML VIAL IVPB PRN (08:36)
[2022-05-30] MEDS ORDERED: Morphine Sulfate 2 MG/ML SYRINGE SLOW IVP PRN (08:36)
[2022-05-30] MEDS ORDERED: Ondansetron PF 4 MG/2 ML Vial IVP PRN ×2 (08:54→10:15)
[2022-05-30] MEDS ORDERED: Dextrose 50% Abboject 50 ML SYRINGE SLOW IVP PRN (08:54)
[2022-05-30] MEDS ORDERED: Hydrocodone-Acetamin 15 ML UDCUP PO PRN (08:54)
[2022-05-30] MEDS ORDERED: Dextrose 5% in Water 1,000 ML IV PRN (08:54)
[2022-05-30] MEDS ORDERED: diphenhydrAMINE 50 MG/ML VIAL IVP PRN (08:54)
[2022-05-30] MEDS ORDERED: hydrALAZINE 20 MG/ML VIAL SLOW IVP PRN (08:54)
[2022-05-30] MEDS ORDERED: Fentanyl 100 MCG/2 ML VIAL ONE (10:13)
[2022-05-30] MEDS ORDERED: Zolpidem Tartrate 5 MG TAB PO PRN (10:15)
[2022-05-30] MEDS ORDERED: Naloxone HCl 0.4 mg/ml Vial IV PRN (10:15)
[2022-05-30] MEDS ORDERED: HYDROmorphone/PF 10 MG in Sodium Chloride 0.9% 99 ML IVPB PRN (10:15)
[2022-05-30] MEDS ORDERED: diphenhydrAMINE 25 MG CAP PO PRN (10:15)
[2022-05-30] MEDS ORDERED: diphenhydrAMINE 50 MG/ML VIAL IM/IV PRN (10:15)
[2022-05-30] MEDS: D5 1/2 NS w/20 mEq KCL 1,000 ML IV SCH ×2 (16:45→17:43)
[2022-05-30] MEDS: Enoxaparin Sodium 40 MG/0.4 ML SYRINGE SC SCH (16:45)
[2022-05-30] MEDS: Pantoprazole 40 MG VIAL IVP SCH (16:45)
[2022-05-31] MEDS ORDERED: Hydrocodone-Acetamin 15 ML UDCUP PO PRN (06:10)
[2022-05-31 06:40] LABS: #Lymphocytes 2.4 thou/uL (1.20-3.40); #Monocytes 0.8 thou/uL (0.11-0.59); #Neutrophils 7.3 thou/uL (1.40-6.50); %Basophils 0.1 % (0.0-1.0); %Eosinophils 0.2 % (0.0-10.0); %Lymphocytes 22.5 % (21.0-51.0); %Monocytes 7.4 % (0.0-10.0); %Neutrophils 69.9 % (42.0-75.0); Hemoglobin 11.1 g/dL (12.0-16.0); Mean Corpuscular HGB CONC 30.9 g/dL (32.0-36.0); Mean Corpuscular Hemoglobin 25.5 pg (27.0-31.0); Mean Corpuscular Volume 82.7 fl (78.0-98.0); Mean Platelet Volume 9.6 fL (7.4-10.4); Platelet Count 274 10x3/uL (130-400); RBC Distribution Width 14.5 % (11.5-14.5); Red Blood Cell (RBC) Count 4.34 mill/uL (4.20-5.40); White Blood Cell (WBC) Count 10.5 10x3/uL (4.8-10.8)
[2022-05-31] MEDS: D5 1/2 NS w/20 mEq KCL 1,000 ML IV SCH ×2 (06:41→09:16)
[2022-05-31 07:02] LABS: Anion Gap 13 mmol/L (10-20); BUN (Urea Nitrogen) 7 mg/dL (7.0-18.7); Calc. Creatinine Clearance 330 mL/min (70-130); Calcium 9.4 mg/dL (7.8-10.44); Carbon Dioxide 24 mmol/L (22-29); Chloride 106 mmol/L (98-107); Estimated GFR 120; Glucose 96 mg/dL (70-105); Potassium 4.1 mmol/L (3.5-5.1); Sodium 139 mmol/L (136-145)
[2022-05-31] MEDS: Enoxaparin Sodium 40 MG/0.4 ML SYRINGE SC SCH (09:15)
[2022-05-31] MEDS: Pantoprazole 40 MG VIAL IVP SCH (09:17)
[2022-05-31] MEDS ORDERED: Cepastat Lozenges 1 LOZ PO PRN (09:47)
[2022-05-31 12:18] VITALS: BP 131/70; TEMP 97.9
[2022-05-31] MEDS ORDERED: MUCINEX INSTASOOTHE SPRY (115 ML BOT) PO PRN (12:35)
[2022-05-31] MEDS ORDERED: Chloraseptic Spray 180 ml Bottle PO PRN (12:38)
== END 2022-05-31 13:37 | disposition home or self-care (01) | DRG 621 ==
LOC: SURG A 05-30 06:14
PROVIDERS: ADMIT Surgery; ATTEND Surgery
PROC: 0DB64Z3 Excision of Stomach, Percutaneous Endoscopic Approach, Vertical (ICD-10-PCS; principal; 2022-05-30)
PROC: 8E0W4CZ Robotic Assisted Procedure of Trunk Region, Percutaneous Endoscopic Approach (ICD-10-PCS; 2022-05-30)
DX: E66.01 Morbid (severe) obesity due to excess calories (principal); Z68.44 Body mass index [BMI] 60.0-69.9, adult; I10 Essential (primary) hypertension; Z20.822 Contact with and (suspected) exposure to COVID-19; Z88.8 Allergy status to other drugs, medicaments and biological substances
CPT/HCPCS: 36415; 80048; 85025; 88307; 94760; C9113; J1100; J1644; J1650; J1885; J2250; J2405; J2550; J2704; J3010; J3480; J3490; S0028; U0002

== ENCOUNTER 2022-12-14 13:05 | Emergency (ER) | payer BC, SELFPAY ==
[2022-12-14] MEDS ORDERED: Ketorolac Tromethamine 30 MG/ML VIAL ONE (14:16)
== END 2022-12-14 14:34 | disposition home or self-care (01) ==
LOC: ERS 13:05
DX: L05.91 Pilonidal cyst without abscess (principal); I10 Essential (primary) hypertension
CPT/HCPCS: 96372; 99282; J1885

== ENCOUNTER 2022-12-16 10:29 | Emergency (ER) | payer SELFPAY ==
[2022-12-16] MEDS ORDERED: Iopamidol-370 76% 500 ML MDV (1 ML CHARGE) ONE (11:14)
[2022-12-16] MEDS ORDERED: Ketorolac Tromethamine 30 MG/ML VIAL ONE (12:56)
[2022-12-16 13:12] LABS: #Eosinphils 0.1 thou/uL (0.0-0.7); #Monocytes 0.8 thou/uL (0.11-0.59); #Neutrophils 6.5 thou/uL (1.40-6.50); %Basophils 0.3 % (0.0-1.0); %Eosinophils 0.8 % (0.0-10.0); %Lymphocytes 25.3 % (21.0-51.0); %Monocytes 7.6 % (0.0-10.0); %Neutrophils 65.6 % (42.0-75.0); Mean Corpuscular HGB CONC 31.5 g/dL (32.0-36.0); Mean Corpuscular Hemoglobin 26.8 pg (27.0-31.0); Mean Corpuscular Volume 85.1 fl (78.0-98.0); Mean Platelet Volume 11.8 fL (7.4-10.4); Platelet Count 246 10x3/uL (130-400); White Blood Cell (WBC) Count 9.8 10x3/uL (4.8-10.8)
[2022-12-16 13:21] LABS: BHCG - Serum Negative (NEGATIVE); Pregs Control Background? CLEAR/WHITE (CLR/WHITE); Pregs Control Bar Appear? YES (CONTROL BAR)
[2022-12-16 13:36] LABS: ALT (SGPT) 10 U/L (8-55); AST (SGOT) 11 U/L (5-34); Albumin 3.6 g/dL (3.5-5.0); Alkaline Phosphatase 91 U/L (40-110); Anion Gap 12 mmol/L (10-20); BUN (Urea Nitrogen) 10 mg/dL (7.0-18.7); Bilirubin, Total 0.4 mg/dL (0.2-1.2); Calc. Creatinine Clearance 0 mL/min (70-130); Calcium 9.4 mg/dL (7.8-10.44); Carbon Dioxide 27 mmol/L (22-29); Chloride 108 mmol/L (98-107); Estimated GFR 117; Globulin 3.9 g/dL (2.4-3.5); Glucose 92 mg/dL (70-105); Potassium 4.1 mmol/L (3.5-5.1); Protein, Total 7.5 g/dL (6.0-8.3); Sodium 143 mmol/L (136-145)
== END 2022-12-16 15:25 | disposition home or self-care (01) ==
LOC: ERS 10:29
DX: L05.91 Pilonidal cyst without abscess (principal); I10 Essential (primary) hypertension
CPT/HCPCS: 74177; 80053; 84703; 85025; 96374; J1885; Q9967